=== PATIENT | female | born 1965 | race American Indian/Alaskan Native ===

== ENCOUNTER 2016-05-23 11:44 | Outpatient (CLI) | payer OTHER ==
--- NOTE | 2016-05-24 09:39 | Vascular Lab Report ---
LOWER EXTREMITY VENOUS DUPLEX: REASON FOR EXAM: Leg pain. COMMENTS ON THE RIGHT: All veins visualized are freely compressible without evidence of internal echogenicity. Flow is spontaneous and phasic throughout. COMMENTS ON THE LEFT: All veins visualized are freely compressible without evidence of internal echogenicity. Flow is spontaneous and phasic throughout. IMPRESSION: No evidence of acute or chronic deep venous thrombosis in either lower extremity.
== END 2016-05-23 11:45 | disposition home or self-care (01) ==
LOC: VAS 11:44
PROVIDERS: ATTEND Family Medicine
DX: M79.604 Pain in right leg (principal)
CPT/HCPCS: 93970

== ENCOUNTER 2016-06-29 07:41 | Outpatient (CLI) | payer OTHER | END 2016-06-29 07:42 | disposition home or self-care (01) | LOC: LABHHL 07:41 | PROVIDERS: ATTEND Surgery | DX: D36.0 Benign neoplasm of lymph nodes (principal) | CPT/HCPCS: 88305 ==

== ENCOUNTER 2016-07-20 12:13 | Outpatient (CLI) | payer OTHER ==
--- NOTE | 2016-07-20 14:20 | Mammography Report ---
LEFT DIGITAL DIAGNOSTIC MAMMOGRAM: 07/20/16 12:13:00 CLINICAL: For clip placement immediately status post ultrasound biopsy of a left axillary lymph node. COMPARISON:A recent [facility] mammogram. FINDINGS: 2 biopsy clips are now identified within the largest left axillary lymph node. One clip correlates with a clip placed recently by Dr. Seals and the second clip was placed today by me. IMPRESSION: Concordant clip placement status post ultrasound biopsy of a dominant left axillary lymph node.
--- NOTE | 2016-07-20 14:41 | Ultrasound Report ---
ULTRASOUND GUIDED NEEDLE CORE BIOPSY WITH CLIP PLACEMENT OF A LEFT AXILLARY LYMPH NODE : 07/20/16 13:11:00 CLINICAL: Suspicious lymph node on a recent mammogram an unsuccessful core biopsy performed recently by Dr. Seals. COMPARISON :[facility] 05/16/16 mammogram FINDINGS: The procedure was explained to the patient and informed consent was obtained. Ultrasound demonstrated the previously described left axillary lymph node. The lymph node measures 1.4 x 0.6 cm the cortex measures 2.5 mm maximum thickness. A clip that was placed at the time of recent biopsy is identified in the upper portion of the lymph node. The skin in the axilla was prepped with Betadine and anesthetized with 1% lidocaine. Ultrasound guided needle core biopsy was performed through a small dermatotomy using 2% lidocaine with epinephrine for deep anesthesia and a 18-gauge Achieve biopsy device. 2 samples were obtained and placed in formalin. Hemostasis was easily obtained and a sterile dressing was applied. The patient tolerated the procedure well and there were no apparent complications. A 2 view mammogram demonstrates three clips within the lymph node. 2 clips were apparently deployed by me with a single insertion in the lower part of the lymph node. IMPRESSION: Uncomplicated ultrasound-guided needle core biopsy of a left axillary lymph node.
== END 2016-07-20 12:14 | disposition home or self-care (01) ==
LOC: SPVWC 12:13
PROVIDERS: ATTEND Surgery
DX: Q83.1 Accessory breast (principal)
CPT/HCPCS: 38505; 76942; A4648; G0206; 88305

== ENCOUNTER 2016-10-26 10:19 | Outpatient (CLI) | payer OTHER ==
--- NOTE | 2016-10-26 12:52 | Fluoroscopy Report ---
UGI INDICATION: Chronic abdominal, right upper quadrant pain. Recent change in antacid medications. COMPARISON: None similar. FINDINGS: Upper GI exam performed. Patient swallowed thick and thin barium without any difficulty and tolerated effervescent granules well. [employer] radiograph demonstrates nonobstructive bowel gas pattern. Slight lower lumbar degenerative spine. Colonic stool/possible constipation. Esophagus is normal in course and caliber. Normal mucosal relief views with esophagus collapsing soon after passage of the bolus. Normal peristalsis and mucosal pattern, to the extent assessed. No demonstrable hiatal hernia or gastroesophageal reflux. Normal gastric contours without evidence of peptic ulcer disease. Normal duodenal bulb and appearance of the C-loop as well. CONCLUSION: Normal upper GI exam, as described. Thank you for the opportunity to participate in this patient's care.
== END 2016-10-26 10:20 | disposition home or self-care (01) ==
LOC: FLUORO 10:19
PROVIDERS: ATTEND Family Medicine
DX: G89.29 Other chronic pain (principal); R10.11 Right upper quadrant pain; M47.896 Other spondylosis, lumbar region
CPT/HCPCS: 74246

== ENCOUNTER 2020-06-19 14:09 | Outpatient (CLI) | payer OTHER ==
--- NOTE | 2020-06-19 15:52 | Magnetic Resonance Report ---
MRI right knee without contrast INDICATION: Right knee pain anteriorly and TECHNIQUE: Axial coronal and sagittal images Finds: There is complex tear within the body posterior horn posterior root of the medial meniscus. Th ere is degenerative change with possible degenerative tear within the anterior junctional zone of the lateral meniscus. ACL is attenuated suggesting mucoid degeneration however is intact. PCL is intact. Collateral ligaments appear normal. There is [id number] chondrosis of the medial femoral condy le. The medial and lateral patellar retinaculum appear normal. Joint effusion with popliteal cyst is seen. IMPRESSION: 1. Complex tear within the body posterior horn and root of the medial meniscus. Degenerative tear wit hin the anterior junctional zone of the lateral meniscus. 2. Tricompartmental degenerative changes small joint effusion and popliteal cyst. 3. Chondrosis most significant in the medial compartment. Signer Name: Nikunj Shaver MD Signed: 06/19/2020 3:48 PM Workstation Name: [id number]
== END 2020-06-19 14:10 | disposition home or self-care (01) ==
LOC: MRI 14:09
PROVIDERS: ATTEND Orthopaedic Surgery
DX: S83.231A Complex tear of medial meniscus, current injury, right knee, initial encounter (principal); M17.11 Unilateral primary osteoarthritis, right knee; M25.461 Effusion, right knee; X58.XXXA Exposure to other specified factors, initial encounter; Y93.89 Activity, other specified; Y92.89 Other specified places as the place of occurrence of the external cause; Y99.8 Other external cause status
CPT/HCPCS: 73721

== ENCOUNTER 2021-11-02 10:09 | Outpatient (CLI) | payer OTHER ==
--- NOTE | 2021-11-02 13:33 | XRay Report ---
XR knees standing AP Bilateral INDICATION / CLINICAL INFORMATION: M17.0 BILATERAL PRIMARY OSTEOARTHRITIS OF KNEE. COMPARISON: None available. FINDINGS: No acute fracture. Normal alignment. Mild bilateral osteoarthritis in the medial compartment. No de structive osseous lesion or suspicious periosteal reaction. Impression: 1.No acute fracture. Signer Name: Albert Mejia MD Signed: 11/02/2021 1:29 PM Workstation Name: [id number]
== END 2021-11-02 10:10 | disposition home or self-care (01) ==
LOC: XRAY 10:09
PROVIDERS: ATTEND Orthopaedic Surgery
DX: M17.0 Bilateral primary osteoarthritis of knee (principal)
CPT/HCPCS: 73565